=== PATIENT | male | born 1985 | race Caucasian/White ===

== ENCOUNTER 2023-12-10 12:56 | Emergency (ER) | payer BC, SELFPAY ==
[2023-12-10 13:01] VITALS: BP 129/84; PULSE 98; RESP 16; TEMP 35.8; O2SAT 97
--- NOTE | 2023-12-10 13:18 | ED.GENADULT ---
HPI - General Adult General Chief complaint: Abdominal Pain Stated complaint: Blood pooling by intestines Time Seen by Provider: 12/10/23 13:12 History of Present Illness HPI narrative: Patient is a 38-year-old white male who is generally healthy other than gout for which he takes allopurinol. He does smoke cigarettes. He has noticed over last 3 days an upset stomach some epigastric discomfort and he has had some blackish stools. He has taken Pepto-Bismol as well but thinks the black stool started before his Pepto-Bismol use yesterday. He does not take NSAIDs on a regular basis he does take ibuprofen occasionally. His mom has Crohn's disease, and he takes allopurinol as mention. He was seen at a [facility] today apparently hemoglobin was normal and his vital signs were good, he had a CT scan of his abdomen which the results were trying to obtain. He has not taken any acid suppressant medicines. He does not have any reflux symptoms. No weight loss Related Data Home Medications Medication Instructions Recorded Confirmed allopurinol 100 mg tablet 200 mg PO DAILY 12/10/23 12/10/23 Allergies Allergy/AdvReac Type Severity Reaction Status Date / Time No Known Drug Allergies Allergy Verified 12/10/23 13:07 Review of Systems Status of ROS: Reports: 6 or more systems reviewed and unremarkable except as noted in History and below PFSH PFS Social History Smoking Status: Smoker, status unknown Non-prescribed substance use: denies use Exam Narrative: Exam Narrative: Objective: Vital signs are within normal limits, his pulse is 98 his blood pressure 129/84 He is alert orient x3 noncyanotic no discomfort or symptomology at this time, he denies lightheadedness or dizziness Pulses regular Chest and abdomen are benign he has no epigastric tenderness or rebound. He does report that the doctor earlier today with pushing hard in his epigastrium did create some discomfort. I do not is lucid any rebound her peritonitis at this time extremities are no edema neurologic nonfocal Rectal exam shows no hemorrhoids, normal sphincter tone, small amount of stool for stool occult blood sent to lab. Const: Vital Signs, click to edit/add: Vital Signs - 24 hr 12/10/23 13:01 Temperature 96.4 F L Pulse Rate [Pulse Oximeter] 98 Respiratory Rate 16 Blood Pressure [Ri ght Upper Arm] 129/84 Pulse Oximetry 97 Oxygen Delivery Me thod Room Air Course Vital Signs Vital signs: Initial Vital Signs Temperature 96.4 F L 12/10/23 13:01 Temperature Source Temporal Artery Scan 12/10/23 13:01 Pulse Rate 98 12/10/23 13:01 Respiratory Rate 16 12/10/23 13:01 Blood Pressure 129/84 12/10/23 13:01 Blood Pressure Mean 99 12/10/23 13:01 Blood Pressure Position Sitting 12/10/23 13:01 Pulse Oximetry 97 12/10/23 13:01 Oxygen Delivery Method Room Air 12/10/23 13:01 Vital Signs Temperature 96.4 F L 12/10/23 13:01 Pulse Rate 98 12/10/23 13:01 Respiratory Rate 16 12/10/23 13:01 Blood Pressure 129/84 12/10/23 13:01 Pulse Oximetry 97 12/10/23 13:01 Oxygen Delivery Method Room Air 12/10/23 13:01 Temperature 96.4 F L 12/10/23 13:01 Pulse Rate 98 12/10/23 13:01 Respiratory Rate 16 12/10/23 13:01 Blood Pressure 129/84 12/10/23 13:01 Pulse Oximetry 97 12/10/23 13:01 Oxygen Delivery Method Room Air 12/10/23 13:01 Medications Administered Medications: Discontinued Medications Generic Name Dose Route Start Last Admin Trade Name Freq PRN Reason Stop Dose Admin Sodium Chloride 1,000 mls @ 6,000 mls/hr 12/10/23 13:30 12/10/23 14:48 0.9 % Sodium Chloride 1000 Ml IV 12/10/23 13:39 Infused .Q10M FABIOLA Infusion Pantoprazole Sodium 40 mg 12/10/23 13:17 12/10/23 14:14 Pantoprazole Sodium 40 Mg Inj IVP 12/10/23 13:18 40 mg ONCE ONE Administration Medical Decision Making MDM Narrative Medical decision making narrative: 38-year-old male with some upset stomach probable gastritis versus early ulcer. At this point he has had a CT scan and lab studies. His hemodynamics appear good. At this point he has Oswaldo fairly symptomatic. I think it be reasonable to check his CT scan. Will have him check lab studies again. I believe they checks stool today but will confirm. Will give him an IV and given some IV Protonix. Patient be set up for EGD tomorrow at 9:30 a.m. in the endoscopy suite. Will give him IV Protonix and fluid now. Will check his labs again to make sure they are stable. If these are reassuring I think he can follow-up tomorrow for his endoscopy. His CT scan showed no acute abnormality he has a nonobstructing right renal calculi. The patient was given a members all and Carafate to start will given a dose of IV Protonix now as well. Will set up for endoscopy tomorrow, if his labs look reassuring and he gets IV fluid he is stable with his lab studies and will do the EGD tomorrow . Return sooner if problems or concerns. Lab Data Labs: Lab Results 12/10/23 12/10/23 Range/Units 13:17 13:29 WBC 7.46 (4.50-11.00) K/uL RBC 5.12 (4.30-5.90) m/uL Hgb 16.9 (13.5-17.5) gm/dL Hct 46.9 (37.0-53.0) % MCV 92 (80-100) fL MCH 33 (26-34) pg MCHC 36 (32-36) gm/dL RDW Coeff of Aliza 11.4 L (11.5-15.5) % Plt Count 189 (140-440) K/uL Neut % (Auto) 70.5 (42.0-72.0) % Lymph % (Auto) 20.6 (20-44) % [place] % (Auto) 5.9 (0.0-11.0) % Eos % (Auto) 2.5 (0.0-7.0) % Baso % (Auto) 0.4 (0.0-3.0) % Neut # (Auto) 5.25 (1.7-7.0) K/uL Lymph # (Auto) 1.54 (0.90-2.90) K/uL [place] # (Auto) 0.40 (0.00-0.90) K/UL Eos # (Auto) 0.19 (0.00-0.50) K/uL Baso # (Auto) 0.03 (0.00-0.30) K/uL Abs Immat Gran (auto) 0.01 (0.00-0.30) K/uL Imm/Tot Granulo (auto) 0.1 % Sodium 138 (135-149) mmol/L Potassium 4.2 (3.6-5.1) mmol/L Chloride 106 (96-114) mmol/L Carbon Dioxide 19 L (20-32) mmol/L Anion Gap 13 (7-15) mEq/L BUN 18 (5-24) mg/dL Creatinine 1.5 (0.5-1.5) mg/dL Estimated GFR 61 ml/min Glucose 89 (60-115) mg/dL Calcium 9.2 (8.4-10.6) mg/dL Total Bilirubin 0.9 (0.1-1.5) mg/dL Direct Bilirubin 0.2 (0.0-0.5) mg/dL AST 42 H (12-35) U/L ALT 61 H (4-50) U/L Alkaline Phosphatase 99 (40-150) U/L C-Reactive Protein 0.6 (0.5-1.0) mg/dL Total Protein 8.5 H (6.0-8.3) g/dL Albumin 4.9 (3.3-5.0) g/dL Amylase 107 H (18-89) U/L Stool Occult Blood Positive (Negative) Discharge Plan Discharge Clinical Impression: Gastritis, Acute GI bleeding Patient Disposition: Home w/ Parent or Adult Condition: Stable Additional Instructions: Upper Endoscopy is scheduled on 12/11 with a 10:15am appointment time. Please arrive at 9:30am to check in and complete paperwork. Enter through the ER and take a left to the Surgery Center. If you have any questions, please call [phone]. Take the 2 medicines as prescribed by your clinic doctor for ulcer disease Activity Level: Light activity Diet Detail: Follow diet instructions from endoscopy. Prescriptions: No Action allopurinol 100 mg tablet 200 mg PO DAILY Stand Alone Forms: [email or web address] Info Instructions
--- NOTE | 2023-12-10 13:40 | ED.NURSE ---
EGD in store banker at bedside. Apt in place.
[2023-12-10 14:02] LABS: Basophils Absolute Auto 0.03 K/uL (0.00-0.30); Basophils Percent Auto 0.4 % (0.0-3.0); Eosinophils Absolute Auto 0.19 K/uL (0.00-0.50); Eosinophils Percent Auto 2.5 % (0.0-7.0); Hematocrit 46.9 % (37.0-53.0); Hemoglobin* 16.9 gm/dL (13.5-17.5); Immature Granulocytes Abs Auto 0.01 K/uL (0.00-0.30); Immature Granulocytes Pct Auto 0.1 %; Lymphocytes Absolute Auto 1.54 K/uL (0.90-2.90); Lymphocytes Percent Auto 20.6 % (20-44); Mean Corpuscular HGB Conc 36 gm/dL (32-36); Mean Corpuscular Hemoglobin 33 pg (26-34); Mean Corpuscular Volume 92 fL (80-100); Monocytes Percent Auto 5.9 % (0.0-11.0); Neutrophils Absolute Auto 5.25 K/uL (1.7-7.0); Neutrophils Percent Auto 70.5 % (42.0-72.0); Platelet Count* 189 K/uL (140-440); RDW Coefficient of Variation % 11.4 % (11.5-15.5); Red Blood Count 5.12 m/uL (4.30-5.90); White Blood Count* 7.46 K/uL (4.50-11.00)
[2023-12-10 14:03] LABS: Slide Review Reflex No
[2023-12-10 14:07] LABS: Chloride* 106 mmol/L (96-114)
[2023-12-10 14:08] LABS: Albumin* 4.9 g/dL (3.3-5.0); Potassium* 4.2 mmol/L (3.6-5.1); Sodium* 138 mmol/L (135-149)
[2023-12-10 14:10] LABS: Amylase* 107 U/L (18-89); Creatinine* 1.5 mg/dL (0.5-1.5); Estimated Glomerular Filt Rate 61 ml/min
[2023-12-10 14:11] LABS: Alanine Aminotransferase* 61 U/L (4-50); Alkaline Phosphatase* 99 U/L (40-150); Anion Gap 13 mEq/L (7-15); Aspartate Amino Transferase* 42 U/L (12-35); Bilirubin Direct* 0.2 mg/dL (0.0-0.5); Bilirubin Total* 0.9 mg/dL (0.1-1.5); Blood Urea Nitrogen* 18 mg/dL (5-24); Carbon Dioxide* 19 mmol/L (20-32); Glucose* 89 mg/dL (60-115); Total Protein* 8.5 g/dL (6.0-8.3)
[2023-12-10 14:12] LABS: Calcium* 9.2 mg/dL (8.4-10.6)
[2023-12-10 14:14] LABS: C Reactive Protein* 0.6 mg/dL (0.5-1.0)
[2023-12-10] MEDS: PANTOPRAZOLE SODIUM 40 MG INJ IVP (14:14)
[2023-12-10] MEDS: 0.9 % SODIUM CHLORIDE 1000 ml 1,000 ML 1200 ML IV (14:14)
[2023-12-10 14:16] LABS: Fecal Occult Blood* Positive (Negative)
--- NOTE | 2023-12-10 14:17 | ED.NURSE ---
Report given to ARACELI Martinez.
== END 2023-12-10 14:50 | disposition home or self-care (01) ==
PROVIDERS: Emergency Provider Family Medicine
DX: K29.70 Gastritis, unspecified, without bleeding (principal); K92.2 Gastrointestinal hemorrhage, unspecified
CPT/HCPCS: 36415; 80048; 80076; 82150; 82270; 85025; 86140; 96374; 99284; C9113; J7030

== ENCOUNTER 2023-12-11 09:31 | Outpatient (CLI) | payer BC, SELFPAY ==
--- NOTE | 2023-12-11 10:48 | W.ANESCHARGE ---
Anesthesia Charges Start Date/Time Anesthesia Start Date: 12/11/23 Anesthesia Start Time: 10:25 Stop Date/Time Anesthesia Stop Date: 12/11/23 Anesthesia Stop Time: 10:46
--- NOTE | 2023-12-11 11:59 | W.ANESCHARGE ---
Anesthesia Charges Start Date/Time Anesthesia Start Date: 12/11/23 Anesthesia Start Time: 10:25 Stop Date/Time Anesthesia Stop Date: 12/11/23 Anesthesia Stop Time: 10:46
== END 2023-12-11 09:32 | disposition home or self-care (01) ==
PROVIDERS: Visit Provider Surgery
DX: K31.89 Other diseases of stomach and duodenum (principal); K22.89 Other specified disease of esophagus
CPT/HCPCS: 00731; 43239; 88305; J2704